=== PATIENT | female | born 1965 | race Caucasian/White ===

== ENCOUNTER 2019-10-26 17:00 | Outpatient (CLI) | payer BC, SELFPAY ==
--- NOTE | ~2019-10-26 | XR_ITS ---
EXAMINATION: XR chest 2V DATE: 10/26/2019 17:25 INDICATION: Positive TB test. Asthma. TECHNIQUE: PA and lateral views of the chest were obtained. COMPARISON: Chest radiograph dated 01/27/2010 FINDINGS: Chronic calcified nodule in the left midlung zone consistent with old granulomatous disease. No other airspace opacities, pulmonary edema, pleural effusion or pneumothorax. The cardiomediastinal silhoue tte is normal. Cholecystectomy clips in the right upper quadrant. Mild thoracic spondylosis. IMPRESSION: 1. No acute cardiopulmonary disease. Reviewed, dictated and finalized at location A.
== END 2019-10-26 17:01 | disposition home or self-care (01) ==
LOC: ANHIMG 17:07
PROVIDERS: PCP Family Medicine; Visit Provider Physician Assistant
DX: R76.11 Nonspecific reaction to tuberculin skin test without active tuberculosis (principal); J45.909 Unspecified asthma, uncomplicated
CPT/HCPCS: 71046

== ENCOUNTER 2019-12-21 17:46 | Outpatient (CLI) | payer BC, SELFPAY ==
--- NOTE | ~2019-12-21 | XR_ITS ---
EXAMINATION: XR hand LT 2V, XR hand RT 2V EXAM DATE: 12/21/2019 18:23 (accession [id number]), 12/21/2019 18:24 (accession [id number]) INDICATION: Polyarticular osteoarthritis, bilateral hand pain. TECHNIQUE: Frontal and lateral projections of the left hand. Frontal and lateral projections of the right hand.. There is no prior study for comparison. FINDINGS: There are no bony erosions identified. The joint spaces are uniform and symmetric. There i s an old left ulnar styloid base avulsion fracture with nonunion. There are no acute fractures or dis locations identified. There is no subcutaneous gas. The soft tissue is unremarkable. There are no radiopaque foreign bodies. IMPRESSION: Old left ulnar styloid fracture. Symmetric unremarkable hand joint spaces. Reviewed, dictated and finalized at location . IMPRESSION: Old left ulnar styloid fracture. Symmetric unremarkable hand joint spaces.
--- NOTE | ~2019-12-21 | XR_ITS ---
EXAMINATION: XR sacroiliac joints min 3V, XR lumbar spine 2-3V EXAM DATE: 12/21/2019 18:17 (accession [id number]), 12/21/2019 18:23 (accession [id number]) INDICATION: Low back, bilateral hip pain. TECHNIQUE: Lumber spine frontal, lateral, lateral L5-S1 projections for interpretation. Frontal, bila teral oblique projections of the sacroiliac joints. There is no prior study for comparison. FINDINGS: There is 2-3 mm retrolisthesis L5 on S1. The vertebral bodies are otherwise aligned. Verteb ral body and disc heights are well-maintained. Mild lumbar facet arthropathy. Sacrum, sacroiliac join ts, sacral arcuate lines are intact. There are cholecystectomy clips. Paraspinal soft tissue otherwis e unremarkable. No spondylolysis. There are no bony erosions identified. IMPRESSION: Mild lumbar facet arthropathy. Reviewed, dictated and finalized at location G. IMPRESSION: Mild lumbar facet arthropathy.
== END 2019-12-21 17:47 | disposition home or self-care (01) ==
LOC: ANHIMG 17:49
PROVIDERS: PCP Family Medicine; Visit Provider Physician Assistant Medical
DX: M25.50 Pain in unspecified joint (principal)
CPT/HCPCS: 72100; 72202; 73120

== ENCOUNTER → 2020-06-03 12:21 | Outpatient (CLI) | payer OTHER, SELFPAY ==
--- NOTE | ~2020-06-03 | XR_ITS ---
EXAMINATION:XR_CERV2-3V_CR DATE: 06/03/2020 12:38 INDICATION: Left-sided predominant neck pain TECHNIQUE: AP, lateral, lateral swimmers and odontoid views of the cervical spine are provided. COMPARISON: None FINDINGS: Alignment is normal. Odontoid is intact. Normal atlantoaxial interval. Vertebral body heights are no rmal. Mild disc height loss at C3-C4 and C5-C6. Multilevel mild to moderate bilateral uncovertebral o steoarthritis. Multilevel mild cervical facet osteoarthritis. Prevertebral soft tissues are normal. Visualized apices of the lungs are clear. IMPRESSION: 1. Mild cervical spondylosis. Reviewed, dictated and finalized at location B. OR ELECTRICAL ESTIMATOR
== END ==
PROVIDERS: PCP Physician Assistant Medical; Visit Provider Physician Assistant Medical
DX: M47.892 Other spondylosis, cervical region (principal)
CPT/HCPCS: 72040

== ENCOUNTER 2025-02-12 09:21 | Outpatient (CLI) | payer OTHER, SELFPAY ==
--- NOTE | ~2025-02-12 | XR_ITS ---
EXAMINATION: XR hand LT min 3V, 02/12/2025 9:38 CDT HISTORY: LT 1ST DIGIT PAIN; OSTEOARTHRITIS x3 MONTHS COMPARISON: No comparisons available. Findings: No acute fracture or malalignment. No significant degenerative changes. Soft tissues unremarkable. Impression: No acute fracture or malalignment. Reviewed, dictated and finalized at location P. Impression: No acute fracture or malalignment.
--- OUTSIDE RECORDS SUMMARY | 2025-02-12 10:08 | XMS_ITS | Encounter Summary ---
Author Organization [facility] Address 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 Gender Identity Not on file Sexual Orientation Not on file documented as of this encounter Plan of Treatment Not on file documented as of this encounter Procedures Procedure Name Priority Date/Time Associated Diagnosis Comments MAMMO SCREEN BILAT W OR WO CAD Routine 11/14/2008 1:16 PM CDT documented in this encounter Results * MAMMO DIGITAL SCREEN BILAT (11/14/2008 1:16 PM CDT) Anatomical Region Laterality Modality Breast Bilateral Other 11/14/2008 1:16 PM CDT Narrative 11/15/2008 9:28 AM CDT [facility] [address] [place], [place] [address] Admit Date: 11/14/2008 ARACELIS CAMARILLO Sex: F Admit Prov: AYAKA POWELL Date: 1965 Primary Care Prov: KATHY QUINTANILLA CMRN: [id number] Room: HOANG SSN: [id number] IMAGING SERVICES Ordering Prov: AYAKA POWELL Accession Number: [id number] Interpretation BILATERAL SCREENING DIGITAL MAMMOGRAM WITH COMPUTER-ASSISTED DIAGNOSIS Findings: Craniocaudal and mediolateral oblique compression views of the breasts were obtained on 11/14/08 using digital technique. Comparison is made with exam of 08/29/07 and 06/25/06. The breast parenchymal pattern is very dense. No suspicious dominant mass lesions, clustered microcalcifications or architectural distortion is seen. Overall, there is no significant change. Impression: No radiographic evidence of malignancy. Routine yearly follow up mammography is recommended. Assessment BIRADS: 1-Negative Recommendation: Normal interval follow-up Dictated by: FANNY RAMIREZ Electronically signed by: FANNY RAMIREZ 11/15/2008 09:28 Transcribed: 11/15/2008 09:28 CCS Procedure Note Fanny Dennis MD - 11/15/2008 [facility] [address] [place], [place] [address] Admit Date: 11/14/2008 ARACELIS CAMARILLO Sex: F Admit Prov: AYAKA POWELL Date: 1965 Primary Care Prov: KATHY QUINTANILLA CMRN: [id number] Room: HOANG SSN: [id number] IMAGING SERVICES Ordering Prov: AYAKA POWELL Interpretation BILATERAL SCREENING DIGITAL MAMMOGRAM WITH COMPUTER-ASSISTEDDIAGNOSIS Findings: Craniocaudal and mediolateral oblique compression views ofthe breasts were obtained on 11/14/08 using digital technique. Comparisonis made with exam of 08/29/07 and 06/25/06. The breast parenchymalpattern is very dense. No suspicious dominant mass lesions, clustered microcalcifications or architectural distortion is seen. Overall,there is no significant change. Impression: No radiographic evidence of malignancy. Routine yearly follow up mammography is recommended. Assessment BIRADS: 1-Negative Recommendation: Normal interval follow-up Dictated by: FANNY RAMIREZ Electronically signed by: FANNY RAMIREZ 11/15/200809:28 Transcribed: 11/15/2008 09:28 CCS us Ayaka Powell MD MAMMO ORDERABLES F inal Result documented in this encounter Visit Diagnoses Diagnosis Other screening mammogram documented in this encounter Care Teams Innersole Fitter Relationship Specialty Start Date End Date Kathy Quintanilla MD PCP - General Family Practice 03/03/10 documented as of this encounter
--- OUTSIDE RECORDS SUMMARY | 2025-02-12 10:08 | XMS_ITS | Encounter Summary ---
Author Organization [facility] Address 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
--- OUTSIDE RECORDS SUMMARY | 2025-02-12 10:08 | XMS_ITS | Clinical Summary ---
Author Organization [facility] Address [address] [place] [address] Phone Care Team Providers Care Button Sewer Hand Name Role Phone Kathy Quintanilla MD Primary Care Provider Allergies Active Allergy Reactions Criticality Noted Date Comments Cephalosporins Hives,Other (See Comments) High 03/03 Medications Cetirizine (ZYRTEC) 10 mg Oral Cap Take by mouth. Activ e montelukast (SINGULAIR) 10 mg Oral tablet Take 10 mg by mouth daily. Active FLUTICASONE PROPIONATE (FLONASE BOTH NOSTRIL) Administer in each nostril. Active ALBUTEROL INHALATION Take by inhalation. Prn Active NORETH A-ET ESTRA/FE FUMARATE (LOESTRIN 24 FE ORAL) Take by mouth. Activ e Active Problems Patient Care Coordination No te Formatting of this note migh t be different from the original. Primary Care: Kathy Quintanilla MD Referring Provider: Ayaka Powell [address] [place] [address] [address] Other: Problem Noted Date Diagnosed Date Asthma Lung nodule Family History Medical History Relation Name Comments Cancer Father skin Breast Cancer Maternal Aunt dx @ age: lat e 40's early 50's Breast Cancer Maternal Cousin 1 dx @ age: early 40's Colon Cancer Maternal Cousin 2 Other Maternal Grandfather diabete s Colon Cancer Maternal Uncle Heart Disease Mother Other Paternal Uncle diabetes Ovarian Cancer Neg Hx Relation Name Status Comments Father Maternal Aunt Maternal Cousin 1 Maternal Cousin 2 Maternal Grandfather Maternal Uncle Mother Paternal Uncle Social History Tobacco Use Types Packs/Day Years Used Date Smoking Tobacco: Never Smokeless Tobacco: Never Alcohol Use Standard Drinks/Week Comments Yes 0 (1 standard drink = 0.6 oz pur e alcohol) rare Comments No Sex and Gender Information Value Date Recorded Sex Assigned at Not on file Legal Sex Female 3:24 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 Gender Identity Not on file Sexual Orientation Not on file Occupation Industry Job Start Date Job End Date Not on file Not on file Not on file Not on file Last Filed Vital Signs Vital Sign Reading Time Taken Comments Blood Pressure 134/87 11/12/2010 1:47 PM CDT Pulse - - Temperature - - Respiratory Rate - - Oxygen Saturation - - Inhaled Oxygen Concentration - - Weight 61.2 kg (135 lb) 04/10/2014 1:00 PM HOT DIE PICKER Height 160 cm (5' 3) 04/10/2014 1:00 PM HOT DIE PICKER Body Mass Index 23.91 04/10/2014 1:00 PM HOT DIE PICKER Plan of Treatment Health Maintenance Due Date Last Done Comments DTAP/TDAP/TD VACCINES (1 - Tdap) 1984 HEPATITIS B VACCINES (1 of 3 - 19+ 3-dose series) 1984 HPV/Cotest (21-29) 1986 CERVICAL CANCER SCREENING 09/15/1995 HPV/Cotest (30-65) 09/15/1995 PAP SMEAR 09/15/1995 COLORECTAL SCREENING 2010 Colorectal Cancer Screening 2010 FIT-DNA Q 3 years 2010 FIT/FOBT Q 1 year 2010 Flex Sig/CT Colonography Q 5 years 2010 ZOSTER VACCINE (1 of 2) 09/15/2015 BREAST CANCER SCREENING 02/07/2021 02/08/20 20, 11/11/2016, 10/15/2015, Additional history exists INFLUENZA VACCINE (#1) 2024 Procedures Procedure Name Priority Date/Time Associated Diagnosis Comments MAMMO 3D CHARLENE SCREEN BILAT W OR WO CAD Routine 02/08/2020 2:22 PM CDT Breast cancer screening by mammogram from Last 3 Months or Most Recently Relevant to Health Maintenance Results * MAMMO SCRN BILAT 3D CHARLENE W OR WO CAD (02/08/2020 2:22 PM CDT) Anatomical Region Laterality Modality Breast Bilateral Mammography 02/08/2020 2:22 PM CDT Impressions 02/09/2020 11:40 AM CDT IMPRESSION: No suspicious findings to suggest malignancy in either breast. Annual mammography is recommended. OVERALL FINAL ASSESSMENT: BI-RADS CATEGORY 1: Negative Narrative 02/09/2020 11:40 AM CDT BILATERAL SCREENING DIGITAL MAMMOGRAM WITH 3D TOMOSYNTHESIS AND CAD DATE: 02/08/2020 2:22 PM HISTORY: Routine screening. DICTATION LOCATION: [facility] TECHNIQUE: Full-field digital craniocaudal and mediolateral oblique projections of both breasts were obtained. Low-dose full-field digital breast tomosynthesis examination was performed with 2D and 3D acquisitions. Examination is read in conjunction with computer aided detection. COMPARISON: 11/11/2016 and older. BREAST COMPOSITION: Heterogeneously dense, which limits the sensitivity of mammography. FINDINGS: No suspicious mass, suspicious microcalcifications, or architectural distortion is identified in either breast. Computer aided detection was used in the interpretation of this examination. Procedure Note Jayleen Juarez MD - 02/09/2020 BILATERAL SCREENING DIGITAL MAMMOGRAM WITH 3D TOMOSYNTHESIS AND CAD DATE: 02/08/2020 2:22 PM HISTORY: Routine screening. DICTATION LOCATION: [facility] TECHNIQUE: Full-field digital craniocaudal and mediolateral oblique projections of both breasts were obtained. Low-dose full-field digital breast tomosynthesis examination was performed with 2D and 3D acquisitions. Examination is read in conjunction with computer aided detection. COMPARISON: 11/11/2016 and older. BREAST COMPOSITION: Heterogeneously dense, which limits the sensitivity of mammography. FINDINGS: No suspicious mass, suspicious microcalcifications, or architectural distortion is identified in either breast. Computer aided detection was used in the interpretation of this examination. IMPRESSION: No suspicious findings to suggest malignancy in either breast. Annual mammography is recommended. OVERALL FINAL ASSESSMENT: BI-RADS CATEGORY 1: Negative us Kathy Quintanilla MD MAMMO ORDERABLES Final Resu lt from Last 3 Months or Most Recently Relevant to Health Maintenance [place] [address] [place] [id number] [employer] CHOICE POS II Care Teams Button Sewer Hand Relationship Specialty Start Date End Date Kathy Quintanilla MD PCP - General Family Practice 03/03/10
--- OUTSIDE RECORDS SUMMARY | 2025-02-12 10:08 | XMS_ITS | Encounter Summary ---
Author Organization [facility] Address [address] [place] [address] Care Team Providers Care Pipelines Laborer Name Role Phone Kathy Quintanilla MD Primary Care Provider [phone] Encounter Details Date Type Department Care Team (Latest Contact Info) Description 11/07/2008 Outpatient Historical HIS [facility] Powell, Ayaka Pickard MD NO ADDRESS ON FILE Other Screening Mammogram Social History Tobacco Use Types Packs/Day Years Used Date Smoking Tobacco: Never Assessed Comments Unknown Sex and Gender Information Value Date Recorded Sex Assigned at Not on file Legal Sex Female 3:24 AM COOK MESS Gender Identity Not on file Sexual Orientation Not on file documented as of this encounter Plan of Treatment Not on file documented as of this encounter Visit Diagnoses Diagnosis Other screening mammogram documented in this encounter Care Teams Pipelines Laborer Relationship Specialty Start Date End Date Kathy Quintanilla MD PCP - General Family Practice 03/03/10 documented as of this encounter
--- OUTSIDE RECORDS SUMMARY | 2025-02-12 10:08 | XMS_ITS | Encounter Summary ---
Author Organization [facility] Address [address] [place] [address] Care Team Providers Care Business Continuity Management Director Name Role Phone Kathy Quintanilla MD Primary Care Provider [phone] Encounter Details Date Type Department Care Team (Latest Contact Info) Description 06/03/2000 Inpatient Historical HIS PATIENT IN A BED PowellAyaka osborn MD NO ADDRESS ON FILE First-degree perineal laceration, with delivery (Primary Dx) Social History Tobacco Use Types Packs/Day Years Used Date Smoking Tobacco: Never Assessed Comments Unknown Sex and Gender Information Value Date Recorded Sex Assigned at Not on file Legal Sex Female 3:24 AM 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
--- OUTSIDE RECORDS SUMMARY | 2025-02-12 10:08 | XMS_ITS | Encounter Summary ---
Author Organization [employer] Address [address] [place] [address] Care Team Providers Care Air Intelligence Specialist Name Role Phone Kathy Quintanilla MD Primary Care Provider [phone] Encounter Details Date Type Department Care Team (Latest Contact Info) Description 09/29/2007 Outpatient Historical [facility] Nick Waggoner MD [address] [facility] [address] [place] [address] Calculus of GB w/o Cystitis/Obst Social History Tobacco Use Types Packs/Day Years Used Date Smoking Tobacco: Never Assessed Comments Unknown Sex and Gender Information Value Date Recorded Sex Assigned at Not on file Legal Sex Female 3:24 AM PROBATE PARALEGAL Gender Identity Not on file Sexual Orientation Not on file documented as of this encounter Plan of Treatment Not on file documented as of this encounter Procedures Procedure Name Priority Date/Time Associated Diagnosis Comments PATHOLOGY Routine 10/05/2007 3:55 PM CDT CBC WITH DIFFERENTIAL Stat 10/05/2007 12:31 PM CDT HEPATIC FUNCTION PANEL Stat 10/05/2007 12:31 PM CDT POC , URINE Routine 10/05/2007 12:30 PM CDT documented in this encounter Results * PATHOLOGY (10/05/2007 3:55 PM CDT) FINAL REPORT [facility] [address] [place], [place] [address] Patient: ARACELIS CAMARILLO : 1965 Procedure Date: 10/05/2007 Accession Date: 10/05/2007 Case No: [id number] Ordering Dr: NICK WAGGONER Case types AW, BW, FW, NW and SH are performed by [facility] [place], [place] SURGICAL PATHOLOGY & NON-GYNECOLOGIC CYTOPATHOLOGY REPORT DIAGNOSIS GALLBLADDER, LAPAROSCOPIC CHOLECYSTECTOMY: - LITHIASIS. - CHRONIC INFLAMMATION AND REACTIVE CHANGES. - LOW-GRADE EPITHELIAL DYSPLASIA. Specimen Description: Gallbladder. Operative Procedure: Laparoscopic cholecystectomy. Patient Information/Histor y/Diagnosis: Cholelithiasis. Gross: Received in a single container labeled Erin Camarillo, gallbladder is a 9.3 x 3.1 x 2.5-cm intact gallbladder. The serosal surface is purple sherwood and glistening. The lumen contains a viscous yellow-green bile, and three yellow-green stones, ranging from 0.3 to 1.3 cm in greatest dimension. The smallest stone is present at the cystic duct margin, but does not appear to occlude the duct. The wall has a uniform thickness of 0.2 cm. The mucosal surface is red-french and velvety. No mucosal lesions are identified. Cotton Machine Operator sections are submitted in cassettes A1 through A3. [facility] 10.05.2007 05:58 pm Microscopic: Received are slides labeled [id number], Aracelis Camarillo. The gallbladder epithelium is partially denuded. Pyloric metaplasia is present. There are foci of low-grade dysplasia. Subepithelial fibrosis is noted as well as scattered infiltrates of chronic inflammatory cells. Eosinophils are admixed, suggesting a subacute inflammatory process. Rokitansky-Aschof f sinuses are present. Dysplasia is not identified in the cystic duct section. [facility] 10.07.2007 05:41 am Staging Form: No. ELECTRONIC SIGNATURE FOR LAVELLE RODRIGUEZ M.D.- 10/07/07 10:21 am INTERFACE SYSTEM 10/05/2007 3:55 PM CDT us Nick Waggoner MD PATHOLOGY/CYTOLOGY ORDERABLES Final Result INTERFACE SYSTEM Refer to clinic/hospital department * CBC WITH DIFFERENTIAL (10/05/2007 12:31 PM CDT) HEMOGLOBIN 13.6 11.8 - 14.8 g/dL [facility] RDW 13.7 11.5 - 14.5 % [facility] WBC 8.4 4.0 - 9.8 K/uL [facility] MCH 29.6 27.2 - 32.6 pg [facility] MPV 11.2 9.3 - 12.4 fL [facility] HEMATOCRIT 40.4 35.5 - 44.0 % [facility] RDW-STDEV 43.6 37.1 - 48.7 fL [facility] RBC 4.59 3.90 - 4.90 M/uL [facility] MCHC 33.7 31.5 - 35.5 % [facility] MCV 88.0 82.0 - 99.0 fL [facility] PLATELETS 195 140 - 350 K/uL [facility] LYMPHOCYTES 34 16 - 45 % [facility] LYMPHOCYTE ABSOLUTE 2.86 0.70 - 4.50 K/uL [facility] BASOPHILS 0 0 - 2 % [facility] BASOPHILS ABSOLUTE 0.02 0.00 - 0.20 K/uL [facility] MONOCYTES 9 3 - 13 % [facility] MONOCYTE ABSOLUTE 0.79 0.10 - 1.30 K/uL [facility] NEUTROPHILS 54 45 - 70 % [facility] NEUTROPHIL ABSOLUTE 4.51 1.90 - 7.00 K/uL [facility] EOSINOPHILS 2 0 - 7 % [facility] EOSINOPHIL ABSOLUTE 0.19 0.00 - 0.70 K/uL [facility] Blood specimen (specimen) 10/05/2007 12:31 PM CDT 10/05/2007 12:39 PM CDT Narrative INTERFACE SYSTEM - 10/05/2007 12:47 PM CDT rm 35 Nick Waggoner MD HEMATOLOGY ORDERABLES Edited Performing Organization Address [facility] Co de Phone Number INTERFACE SYSTEM Refer to clinic/hospital department [facility] CLIA# [id number] [address], [place] [address] * HEPATIC FUNCTION PANEL (10/05/2007 12:31 PM CDT) BILIRUBIN TOTAL 0.5 0.2 - 1.0 mg/dL [facility] TOTAL PROTEIN 7.3 6.3 - 8.6 g/dL [facility] ALKALINE PHOSPHATASE 54 35 - 104 U/L [facility] BILIRUBIN DIRECT 0.1 0.0 - 0.3 mg/dL [facility] AST 16 12 - 32 U/L [facility] ALBUMIN 4.4 3.4 - 4.8 g/dL [facility] ALT 15 0 - 31 U/L [facility] Blood specimen (specimen) 10/05/2007 12:31 PM CDT 10/05/2007 12:39 PM CDT Nick Waggoner MD CHEMISTRY ORDERABLES Final Re sult Performing Organization Address City/[facility]/ZIP Co de Phone Number [facility] CLIA# [id number] [address] [place] [address] * POC , URINE (10/05/2007 12:30 PM CDT) , URINE POC Negative Negative [facility] Urine specimen (specimen) 10/05/2007 12:30 PM CDT 10/05/2007 12:30 PM CDT us Nick Waggoner MD POINT OF CARE TESTING Final R esult [facility] CLIA# [id number] [address] [place] [address] documented in this encounter Visit Diagnoses Diagnosis Calculus of gallbladder without mention of cholecystitis or obstruction documented in this encounter Care Teams Air Intelligence Specialist Relationship Specialty Start Date End Date Kathy Quintanilla MD PCP - General Family Practice 03/03/10 documented as of this encounter
--- OUTSIDE RECORDS SUMMARY | 2025-02-12 10:08 | XMS_ITS | Encounter Summary ---
Author Organization [facility] Address [address] [place] [address] Care Team Providers Care Fur Mixer Operator Name Role Phone Kathy Quintanilla MD Primary Care Provider + Desean Torre OD Unavailable [phone] Encounter Details Date Type Department Care Team (Late st Contact Info) Description 09/03/2016 Orders Only [facility] ProviderSekou MD [address] [place] [id number] Social History Tobacco Use Types Packs/Day Years Used Date Smoking Tobacco: Never Comments Unknown Sex and Gender Information Value Date Recorded Sex Assigned at Not on file Legal Sex Female 7:48 PM 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 Historical Provider [facility] BRENDAN CELAYA Final Result documented in this encounter Visit Diagnoses Not on filedocumented in this encounter Care Teams Fur Mixer Operator Relationship Specialty Start Date End Date Kathy Quintanilla MD PCP - General 08/28/16 Desean Torre, [address] [place] [address] Optometry 06/09/19 documented as of this encounter
--- OUTSIDE RECORDS SUMMARY | 2025-02-12 10:08 | XMS_ITS | Encounter Summary ---
Author Organization [facility] Address 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
--- OUTSIDE RECORDS SUMMARY | 2025-02-12 10:08 | XMS_ITS | Encounter Summary ---
Author Organization [employer] Address [address] [place] [address] Care Team Providers Care Project Accountant Name Role Phone Kathy Quintanilla MD Primary Care Provider [phone] Encounter Details Date Type Department Care Team (Late st Contact Info) Description 02/13/2008 Outpatient Historical [facility] Fatuma Ge MD 1 [facility] [address] [place] [id number] Diverticulosis of Colon (without Mention of Hemorrhage) Social History Tobacco Use Types Packs/Day Years Used Date Smoking Tobacco: Never Assessed Comments Unknown Sex and Gender Information Value Date Recorded Sex Assigned at Not on file 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 Gender Identity Not on file Sexual Orientation Not on file documented as of this encounter Plan of Treatment Not on file documented as of this encounter Procedures Procedure Name Priority Date/Time Associated Diagnosis Comments POC , URINE Routine 02/13/2008 11:36 AM CDT documented in this encounter Results * POC , URINE (02/13/2008 11:36 AM CDT) , URINE POC Negative Negative [facility] Urine specimen (specimen) 02/13/2008 11:36 AM CDT 02/13/2008 11:36 AM CDT us Fatuma Ge MD POINT OF CARE TESTING Final Res ult INTERFACE SYSTEM Refer to clinic/hospital department [facility] CLIA# [id number] [address] [place] [address] documented in this encounter Visit Diagnoses Diagnosis Diverticulosis of colon (without mention of hemorrhage) documented in this encounter Care Teams Project Accountant Relationship Specialty Start Date End Date Kathy Quintanilla MD PCP - General Family Practice 03/03/10 documented as of this encounter
--- OUTSIDE RECORDS SUMMARY | 2025-02-12 10:08 | XMS_ITS | Clinical Summary ---
Author Organization [facility] Address [address] [place] [address] Care Team Providers Care Child Protection Specialist Name Role Phone Kathy Quintanilla MD Primary Care Provider + Desean Torre OD Unavailable [phone] Allergies Active Allergy Reactions Criticality Noted Date Comments Cephalosporins Iodoquinol Unknown 07/15/2012 UNCERTAIN OF REACTION Oxycodone-Acetaminophen Nausea & Vomiting Low 07/27 Nausea and vomiting Quinolones Sulfa (Sulfonamide Antibiotics) Tetracyclines Medications aspirin 81 mg tablet Active cetirizine 10 mg capsule Take 10 mg by mouth. Active cloNIDine (CATAPRES) 0.1 mg tablet TK 1 T PO HS 8 Active YUVAFEM 10 mcg tablet 8 Active fluticasone propionate (FLONASE) 50 mcg/actuation nasal spray Active ibuprofen (ADVIL,MOTRIN) 600 mg tablet Take 600 mg by mouth every 6 hours. 4 Active Restasis 0.05 % ophthalmic emulsion INSTILL 1 DROP INTO BOTH EYES EVERY 12 HOURS 180 each 3 0 Active Additional Information Patient not taking.Reported on 05/16/2024 folic acid (FOLVITE) 1 mg tablet Take 1 tablet (1 mg total) by mouth daily 90 tablet 2 0 Active cyclobenzaprine (FLEXERIL) 10 mg tablet TAKE 1 TABLET BY MOUTH THREE TIMES DAILY FOR 10 DAYS NEEDED FOR MUSCLE SPASM 1 Active ramipriL (ALTACE) 10 mg capsule Take 1 capsule (10 mg total) by mouth daily Active venlafaxine (EFFEXOR) 75 mg tablet Take 1 tablet (75 mg total) by mouth 2 (two) times a day Active nebivoloL (BYSTOLIC) 5 mg tablet Take 5 mg by mouth daily Active amLODIPine (NORVASC) 5 mg tablet Take 1 tablet (5 mg total) by mouth daily Active triamcinolone (KENALOG) 0.1 % cream Apply to affected area 1-2 times daily as needed. Avoid face and groin. 30 g 5 Active montelukast (SINGULAIR) 10 mg tablet Take 1 tablet (10 mg total) by mouth nightly 30 tablet 5 Active albuterol HFA (PROVENTIL HFA,VENTOLIN HFA,PROAIR HFA) 90 mcg/actuation inhaler Inhale 2 puffs every 6 (six) hours as needed for wheezing or shortness of breath 1 each 5 Active Active Problems Problem Noted Date Diagnosed Date Encounter for long-term current use of high risk medication 01/31/2020 Overview (03/04/2020): 01/2020: UTD on Tdap, PCV13 and flu. 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 Prevnar 2012. 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 Unremarkable SI joints Right hand/wrist US (12/21/19): 1) Mild synovial thickening of the wrist. Mild/moderate 3rd MCP, moderate 4th MCP, and mild 2nd and 3rd PIP synovial thickening. The DIPs had grade 1 power Doppler of the 2nd-3rd and grade 2 of the 5th volar profundus tendon insertion on examination which will have to be correlated clinically. Assessment & Plan (07/03/2020 12:09 PM HOME HEALTH CARE COORDINATOR): CDAI 3.2 Off MTX secondary to rash to chest and neck following dosing that resolved with benadryl as well as epistaxis. Has been doing well with only occasional joint discomfort and intermittent AM swelling in the knuckles. Takes OTC NSAIDs prn - mostly for HAs. Questionable fullness in the right 2nd MCP joint with mild ttp of the right 3-4 PIP and left 5th DIP joints. Previous serologies were negative for autoantibodies, including HLA-B27. The right hand/wrist US revealed mild synovial thickening of the wrist, mild/moderate 3rd MCP, moderate 4th MCP, and mild 2nd and 3rd PIP synovial thickening. Additionally the DIPs had a grade 1 power Doppler of the 2nd-3rd and grade 2 of the 5th volar profundus tendon insertion on examination. As she appears to be stable without medication will continue to monitor symptoms at this time. Ibuprofen prn. Return in 2-3 months prior to move. Sooner if needed. UTD on Tdap, PCV13 and flu. Assessment & Plan (05/01/2020 12:23 PM HOME HEALTH CARE COORDINATOR): CDAI Was on 15mg MTX weekly and 1mg folic acid daily at last visit and but began experiencing erythematous, pruritic rash to chest and neck following dosing that resolved with benadryl as well as new onset nose bleeds. Since being off methotrexate has not noticed any worsening of joint complaints or stiffness. No synovitis appreciated on exam today with minimal joint tenderness. Recent serologies were negative for autoantibodies, including HLA-B27. The right hand/wrist US revealed mild synovial thickening of the wrist, mild/moderate 3rd MCP, moderate 4th MCP, and mild 2nd and 3rd PIP synovial thickening. Additionally the DIPs had a grade 1 power Doppler of the 2nd-3rd and grade 2 of the 5th volar profundus tendon insertion on examination. As she appears to be stable without medication will monitor symptoms at this time. Ibuprofen prn. Return in 3 months. Sooner if needed. Discussed with Dr. Mayorga. UTD on Tdap, PCV13 and flu. Assessment & Plan (03/06/2020 4:11 PM CDT): CDAI 8 On 15mg MTX weekly and 1mg folic acid daily at last visit and tolerating without SE. Notes continued improvement in joint complaints. Still with some discomfort in her lower back but was recently traveling and sitting in car for prolonged period of time. Recent serologies were negative for autoantibodies, including HLA-B27. The right hand/wrist US revealed mild synovial thickening of the wrist, mild/moderate 3rd MCP, moderate 4th MCP, and mild 2nd and 3rd PIP synovial thickening. Additionally the DIPs had a grade 1 power Doppler of the 2nd-3rd and grade 2 of the 5th volar profundus tendon insertion on examination. On exam there is minimal tenderness and synovitis of the hands. Continue MTX 15mg weekly and 1mg folic acid daily. Routine labs today. Ibuprofen prn. Suggested to apply vasoline to nasal septum due to dryness and use humidifier in her bedroom at night. Return in 2 months. Sooner if needed. UTD on Tdap, PCV13 and flu. Assessment & Plan (01/31/2020 11:22 AM CDT): CDAI 10 Began 10mg MTX weekly and 1mg folic acid daily at last visit and tolerating without SE. Notes some improvement in her hands - no longer having the burning sensation. Still with some discomfort in her lower back but states she was lifting weights and sitting at a high desk which caused some muscle spasming. Recent serologies were negative for autoantibodies, including HLA-B27. The right hand/wrist US revealed mild synovial thickening of the wrist, mild/moderate 3rd MCP, moderate 4th MCP, and mild 2nd and 3rd PIP synovial thickening. Additionally the DIPs had a grade 1 power Doppler of the 2nd-3rd and grade 2 of the 5th volar profundus tendon insertion on examination. On exam there is scattered tenderness of the hands and feet with minimal synovitis appreciated. Increase MTX to 15mg weekly and continue 1mg folic acid daily. Just had CMP, CBC and HCV drawn on 01/28 that were normal - will check ESR, CRP and HBV status today. Return in 4 weeks. Sooner if needed. UTD on Tdap, PCV13 and flu. Assessment & Plan (01/03/2020 1:08 PM CDT): Ms. Camarillo is a 54yo female with PMH of latent TB, HTN and asthma who presents with polyarthralgia involving the hands and low back. For past 6-8 months her hands have begun to swell in the AM, which improves with movement and time. Also notes aching pain of the knuckles and they will often be numb when she first wakes up. Notes low back pain that has occurred intermittently since her 20s but recently has begun to feel stiff upon waking and with prolonged immobility. Takes ibuprofen with some relief of joint pain. Also reports sicca symptoms, nose sores, intermittent dysphagia, recurrent plantar fasciitis and achilles tendonitis, history of golfers and tennis elbow affecting the left elbow. FH significant for mother with lupus/RA/Raynauds and daughter with Rivka's. Recent serologies were negative for autoantibodies, including HLA-B27. 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 The right hand/wrist US revealed mild synovial thickening of the wrist, mild/moderate 3rd MCP, moderate 4th MCP, and mild 2nd and 3rd PIP synovial thickening. Additionally the DIPs had a grade 1 power Doppler of the 2nd-3rd and grade 2 of the 5th volar profundus tendon insertion on examination. On exam there is synovitis present along with tenderness of several joints of the hands, including DIPs. CDAI 18. Symptoms, history of repeat enthesitis, physical exam and US findings correlate with a diagnosis of a spondyloarthropathy. Recommend initiating treatment with 10mg MTX once weekly and 1mg folic acid daily. Patient advised of the side effects of the medication, including but not limited to increased risk of infection, GI upset, increased LFTs, mouth sores, rash, diarrhea, and/or blood count abnormalities. Discussed that this medication can take upwards of 3 months before joint improvement is noticeable and the dosage will be increased at each subsequent visit until symptoms are controlled or the maximum dose of 20mg is achieved. PT was amenable to the plan. Provided handouts about medication and diagnosis. Suggested wearing wrist braces at night to see if any improvement in paresthesias. Return in 4 weeks. Sooner if needed. Seen with Dr. Mayorga. Assessment & Plan (12/20/2019 3:25 PM CDT): Ms. Camarillo is a 54yo female with PMH of latent TB, HTN and asthma who presents with polyarthralgia involving the hands and low back. For past 6-8 months her hands have begun to swell in the AM, which improves with movement and time. Also notes aching pain of the knuckles and they will often be numb when she first wakes up. Notes low back pain that has occurred intermittently since her 20s but recently has begun to feel stiff upon waking and with prolonged immobility. Takes ibuprofen with some relief of joint pain. Also reports sicca symptoms, nose sores, intermittent dysphagia, recurrent plantar fasciitis and achilles tendonitis, history of golfers and tennis elbow affecting the left elbow. FH significant for mother with lupus/RA/Raynauds and daughter with Rivka's. On exam there is synovitis present along with tenderness of several joints of the hands, including DIPs. Tenderness of bilateral SI joints and left greater trochanter. Symptoms suspicious for a spondyloarthropathy. Will perform appropriate radiographs, serologies, and right hand US with DIP joints to assess the etiology of symptoms. Provided handout for trochanteric bursitis/IT band stretches. Suggested wearing wrist braces at night to see if any improvement in paresthesias. Return in [address] Mayorga. Positive QuantiFERON-TB Gold test 11/21/2019 Assessment & Plan (11/21/2019 8:53 PM CDT): Aracelis Camarillo is a 54 year old woman who presents to clinic to follow up on QuantiFERON gold testing. Her test was positive. She does have some risk for infection with tuberculosis based on living with a maternal grandmother who was previously quarantined for tuberculosis. However it is difficult to know if she had active disease at the time they would have resided together. Other risk factors include living in [place] as a child and spending time in [place]. We discussed the possibility of treating her for latent tuberculosis, however at this point in time we feel it is more beneficial to repeat her test using a T-Spot. We will obtain this test in December. If this is positive we will see her back in clinic for discussion of treatment of latent tuberculosis infection. I will follow up with her on the results of this test. We can schedule follow up as needed based on the results. 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 Assessment & Plan (04/07/2018 10:48 AM HOME HEALTH CARE COORDINATOR): Doing well, having intermittent tearing several times throughout the year, but overall stable -can continue restasis BID as pt feels that it helps -continue using systane PRN RTC in 1 year Unspecified inflammation of eyelid 03/05/2015 Carpal tunnel syndrome 03/12/2014 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 Endometriosis 08/04/2012 Dyschezia 06/03/2012 Dysmenorrhea 06/03/2012 Dyspareunia 06/03/2012 Urinary frequency 06/03/2012 Pelvic pain 06/03/2012 Coccidioidomycosis 05/11/2012 Immunizations Immunization Administration Dates Next Due Influenza, Quadrivalent, Leyda l Culture-based MDCK, Preservative Free, Antibiotic Free, Intramuscular 02/12/2020 Pneumococcal Polysaccharide PPV23 01/10/2020, ZOSTER Recombinant 12/05/2018,07/31/2018 Medical History Medical History Date Comments Spondyloarthritis Family History Medical History Relation Name Comments Breast cancer Cousin 1 Family history of malignant neoplasm of breast - (Added by TW Conv) Prostate cancer Cousin 2 Prostate can cer - (Added by TW Conv) Skin cancer Father Family history of skin cancer - (Added by TW Conv) Diabetes Father's Brother Family hist ory of diabetes mellitus - (Added by TW Conv) Diabetes Maternal Grandfather Family history of diabetes mellitus - (Added by TW Conv) Heart disease Mother Family history of cardiac disorder - (Added by TW Conv) Breast cancer Mother's Sister Family hist ory of malignant neoplasm of breast - (Added by TW Conv) Relation Name Status Comments Cousin 1 Cousin 2 Father Father's Brother Maternal Grandfather Mother Mother's Sister Social History Tobacco Use Types Packs/Day Years Used Date Smoking Tobacco: Never Tobacco Cessation:Counseling Given: Not Answered Comments Unknown Sex and Gender Information Value Date Recorded Sex Assigned at Not on file Legal Sex Female 7:48 PM HOME HEALTH CARE COORDINATOR Gender Identity Female 01/24/2020 11:24 AM CDT Sexual Orientation Not on file Obstetrics History Last Filed Vital Signs Vital Sign Reading Time Taken Comments Blood Pressure 121/79 05/16/2024 2:22 PM HOME HEALTH CARE COORDINATOR Pulse 81 05/16/2024 2:22 PM HOME HEALTH CARE COORDINATOR Temperature 36.7 C (98 F) 05/16/2024 2:22 PM HOME HEALTH CARE COORDINATOR Respiratory Rate 18 05/16/2024 2:22 PM HOME HEALTH CARE COORDINATOR Oxygen Saturation 98% 05/16/2024 2:22 PM HOME HEALTH CARE COORDINATOR Inhaled Oxygen Concentration - - Weight 68.1 kg (150 lb 3.2 oz) 05/16/2024 2:22 P M HOME HEALTH CARE COORDINATOR Height 160 cm (5' 2.99) 05/16/2024 2:22 PM HOME HEALTH CARE COORDINATOR Body Mass Index 26.61 05/16/2024 2:22 PM HOME HEALTH CARE COORDINATOR Plan of Treatment Health Maintenance Due Date Last Done Comments Cervical Cancer Screening 1965 Colon Cancer Screening-Colonoscopy 1965 Depression Screening 1965 DTaP/Tdap/Td Vaccine (1 - Tdap) 1976 Hepatitis B Screening 09/15/1983 Regular Well Visit/Exam 18-64 09/15/1983 Pneumococcal vaccine <65 (2 of 2 - PCV) 01/09/2021 01/10/2020, 10/05/2012 Breast Cancer Screening-Mammogram 02/07/2021 02/08/2020, 02/08/2020, 11/11/2016, Additional history exists Influenza Vaccine (#1) 2025 02/12/2020 Zoster Vaccine Completed 12/05/2018, 07/31/2018 Hepatitis C Screening Completed 01/31/2020 Procedures Procedure Name Priority Date/Time Associated Diagnosis Comments HEPATITIS C ANTIBODY Routine 01/31/2020 11:29 AM CDT from Last 3 Months or Most Recently Relevant to Health Maintenance Results * Hepatitis C antibody (01/31/2020 11:29 AM CDT) Hep C Ab NON-REACTI VE NON-REACT RUPA [facility] SIGNAL TO CUT-OFF 0.02 <1.00 [facility] Comment: HCV antibody was non-reactive. There is no laboratory evidence of HCV infection. In most cases, no further action is required. However, if recent HCV exposure is suspected, a test for HCV RNA (test code 70729) is suggested. For additional information please refer to http://education.[facility]/faq/REV33j5 (This link is being provided for informational/ educational purposes only.) 01/31/2020 11:2 9 AM CDT 01/31/2020 11:30 AM CDT [facility] MICROBIOLOG Y - GENERAL ORDERABLES Final Result [facility] [id number] [id number] from Last 3 Months or Most Recently Relevant to Health Maintenance Insurance [employer] PPO [employer] [address] [place] [phone] Care Teams Child Protection Specialist Relationship Specialty Start Date End Date Kathy Quintanilla MD PCP - General 08/28/16 Desean Torre OD [address] [place] [address] Optometry 06/09/19
--- OUTSIDE RECORDS SUMMARY | 2025-02-12 10:08 | XMS_ITS | Encounter Summary ---
Author Organization [facility] Address 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 Gender Identity Not on file Sexual Orientation Not on file documented as of this encounter Plan of Treatment Not on file documented as of this encounter Procedures Procedure Name Priority Date/Time Associated Diagnosis Comments US PELVIS + TRANSVAG NON OB Timed Study 09/05/2007 2:45 PM CDT documented in this encounter Results * US PELVIS + TRANSVAG NON OB (09/05/2007 2:45 PM CDT) Anatomical Region Laterality Modality Pelvis Other 09/05/2007 2:45 PM CDT Narrative 09/06/2007 8:59 AM CDT [facility] [address] [place], [place] [address] Admit Date: 09/05/2007 ARACELIS CAMARILLO Sex: F Admit Prov: AYAKA POWELL Date: 1965 Primary Care Prov: CMRN: [id number] Room: [facility] SSN: [id number] IMAGING SERVICES Ordering Prov: N/A Accession Number: [id number] Interpretation PELVIC ULTRASOUND, 09/05/2007. Clinical History: Female genital symptoms, history of left ovarian cyst on CT at an outside institution. Sagittal and transverse real-time examination reveals the uterus to measure 9.9 x 3.8 x 5.4 cm in diameter and appear normal. The left ovary is 3.3 x 1.7 x 3.3 cm in size and appears unremarkable on the transabdominal study. The right ovary is 3.1 x 1.3 x 2.1 cm in size and appears normal on the transabdominal study. There is no free fluid. TRANSVAGINAL PELVIC ULTRASOUND, 09/05/2007. Sagittal and transverse transvaginal pelvic ultrasound reveals multiple nabothian cysts of the cervix on the transvaginal study. The endometrium appears thickened and inhomogeneous measuring up to 2 cm in thickness on the sagittal transvaginal images. An endometrial polyp or fibroid cannot be excluded. The left ovary measures 3.2 x 2.3 x 2.6 cm in size. It contains a partially collapsed cyst measuring up to 1.5 cm size. An additional smaller simple cyst is present peripherally measuring about 0.8 cm in size. These are thought to be physiological findings. The right ovary is 2.1 x 1.8 x 2.2 cm in size and appears sonographically normal. Conclusion: Two small presumably physiological cysts in the left ovary. Thickened inhomogeneous endometrial echo. Normal appearing right ovary. . Dictated by: DAVID MACIAS 09/05/2007 15:27 Electronically signed by: DAVID MACIAS 09/06/2007 08:59 Transcribed: 09/05/2007 20:20 AMK Procedure Note Provider, Historical - 09/06/[address] [address] Admit Date: 09/05/2007 ARACELIS CAMARILLO Sex: F Admit Prov: AYAKA POWELL Date: 1965 Primary Care Prov: CMRN: [id number] Room: [facility] SSN: [id number] IMAGING SERVICES Ordering Prov: N/A Interpretation PELVIC ULTRASOUND, 09/05/2007. Clinical History: Female genital symptoms, history of left ovariancyst on CT at an outside institution. Sagittal and transverse real-time examination reveals the uterus tomeasure 9.9 x 3.8 x 5.4 cm in diameter and appear normal. The left ovary is3.3 x 1.7 x 3.3 cm in size and appears unremarkable on the transabdominalstudy. The right ovary is 3.1 x 1.3 x 2.1 cm in size and appears normal onthe transabdominal study. There is no free fluid. TRANSVAGINAL PELVIC ULTRASOUND, 09/05/2007. Sagittal and transverse transvaginal pelvic ultrasound revealsmultiple nabothian cysts of the cervix on the transvaginal study. Theendometrium appears thickened and inhomogeneous measuring up to 2 cm in thicknesson the sagittal transvaginal images. An endometrial polyp or fibroidcannot be excluded. The left ovary measures 3.2 x 2.3 x 2.6 cm in size. It contains apartially collapsed cyst measuring up to 1.5 cm size. An additional smallersimple cyst is present peripherally measuring about 0.8 cm in size. Theseare thought to be physiological findings. The right ovary is 2.1 x 1.8 x2.2 cm in size and appears sonographically normal. Conclusion: Two small presumably physiological cysts in the left ovary. Thickened inhomogeneous endometrial echo. Normal appearing right ovary. . Dictated by: DAVID MACIAS 09/05/2007 15:27 Electronically signed by: DAVID MACIAS 09/06/2007 08:59 Transcribed: 09/05/2007 20:20 AMK Ayaka oPwell MD ORDERABLES Fi nal Result documented in this encounter Visit Diagnoses Diagnosis Unspecified symptom associated with female genital organs documented in this encounter Care Teams Dewer Relationship Specialty Start Date End Date Kathy Quintanilla MD PCP - General Family Practice 03/03/10 documented as of this encounter
--- OUTSIDE RECORDS SUMMARY | 2025-02-12 10:08 | XMS_ITS | Encounter Summary ---
Author Organization [facility] Address 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 [address] [place], [place] [address] Admit Date: 08/29/2007 ARACELIS CAMARILLO Sex: F Admit Prov: AYAKA POWELL Date: 1965 Primary Care Prov: CMRN: [id number] Room: [facility] N: [id number] IMAGING SERVICES Ordering Prov: AYAKA POWELL Accession Number: [id number] Interpretation BILATERAL SCREENING DIGITAL MAMMOGRAMS WITH COMPUTER ASSISTED DIAGNOSIS, 08/29/2007 Comparison is made to 06/25/2006. The breast parenchyma is heterogeneously dense. No new dominant masses, suspicious calcifications or areas of parenchymal asymmetry or distortion are identified. The CAD system was utilized. Impression: Stable screening mammogram. Recommend routine followup. Assessment BIRADS: 1-Negative Recommendation: Normal interval follow-up Dictated by: LARA IVY Electronically signed by: LARA IVY 08/31/2007 10:00 Transcribed: 08/30/2007 16:14 DKT Procedure Note Lara Ivy - 08/31/2007 [id number] [place], [place] [address] Admit Date: 08/29/2007 ARACELIS CAMARILLO Sex: F Admit Prov: AYAKA POWELL Date: 1965 Primary Care Prov: CMRN: [id number] [id number] [facility] Ordering Prov: AYAKA POWELL Interpretation BILATERAL SCREENING DIGITAL MAMMOGRAMS WITH COMPUTER ASSISTEDDIAGNOSIS, 08/29/2007 Comparison is made to 06/25/2006. The breast parenchyma isheterogeneously dense. No new dominant masses, suspicious calcifications or areasof parenchymal asymmetry or distortion are identified. The CAD systemwas utilized. Impression: Stable screening mammogram. Recommend routine followup. Assessment BIRADS: 1-Negative Recommendation: Normal interval follow-up Dictated by: LARA IVY Electronically signed by: LARA IVY 08/31/2007 10:00 Transcribed: 08/30/2007 16:14 DKT Ayaka Powell MD MAMMO ORDERABLES F inal Result documented in this encounter Visit Diagnoses Diagnosis Other screening mammogram documented in this encounter Care Teams Quality Control Scientist Relationship Specialty Start Date End Date Kathy Quintanilla MD PCP - General Family Practice 03/03/10 documented as of this encounter
== END 2025-02-12 09:22 | disposition home or self-care (01) ==
PROVIDERS: PCP Student in an Organized Health Care Education/Training Program; Visit Provider Plastic Surgery
DX: M18.12 Unilateral primary osteoarthritis of first carpometacarpal joint, left hand (principal)
CPT/HCPCS: 73130